=== PATIENT | male | born 1975 | race Caucasian/White ===

== ENCOUNTER → 2016-10-10 | Outpatient (CLI) | payer BC ==
--- NOTE | ~2016-10-10 | EKG ---
PATIENT: KATHERIN DUNHAM UNIT #: [id number] Ventricular Rate: 80 BPM Atrial Rate: 80 BPM P-R Interval: 152 ms QRS Duration: 96 ms Q-T Interval: 362 ms QTC Calculation(Bezet): 417 ms P [place]: 20 degrees Calculated R [place]: 37 degrees Calculated T [place]: 59 degrees Diagnosis Line: Normal sinus rhythm Diagnosis Line: Normal ECG Diagnosis Line: No previous ECGs available Diagnosis Line: Confirmed by GILL MORAES MD ([id number]) on Diagnosis Line: 10/11/2016 2:22:08 PM INTERPRETING MD: DIMITRY ACEVEDO
--- NOTE | ~2016-10-10 | CR63 ---
[facility] A Service of [facility] & [facility] RADIOLOGY TEXT RESULTS PATIENT: KATHERIN DUNHAM [place] [facility] [place] [birth year] UNIT #: [id number] AGE: [address]: Jarod Oliva MD SEX: M ORDER DR: [id number] [facility] [address] [place], [place] [address] [id number] O MR#: [id number] #: [id number] NAME: KATHERIN DUNHAM : 1975 SEX: M STUDY DATE/TIME: 10/10/2016 10:26 [place]IT: [facility] [place]OM: STUDY DESCRIPTION: CR Chest 2 View Attending Physician: Jarod Oliva M.D. Referring Physician: Jarod Oliva M.D. Ordering Physician: Jarod Oliva M.D. Primary Care Physician: Nayeli Zapien M.D. MEDICAL IMAGING REPORT This report is preliminary unless electronic signature is present EXAM PA and lateral chest radiograph 10/10. COMPARISON 09/01/14. HISTORY Hypertension, preop left knee surgery, shortness of breath with activity. FINDINGS PA and lateral views of the chest are obtained. The cardiovascular configuration is normal and the lungs are clear. CONCLUSION Normal chest Dictated by... Owen Burks M.D. THIS IS AN ELECTRONICALLY VERIFIED REPORT Owen Burks M.D. at 10/10/2016 5:08 PM Alejo TD: 10/10/2016 14:10 JOB #: [id number] MEDICAL IMAGING REPORT Page 1 of 1 COPY
[2016-10-10 11:12] LABS: URINE APPEARANCE CLEAR; URINE BILIRUBIN NEG (NEG); URINE BLOOD TRACE (NEG); URINE COLOR YELLOW; URINE GLUCOSE NEG (NEG); URINE KETONE NEG (NEG); URINE LEUKOCYTE ESTERASE NEG (NEG); URINE NITRATE NEG (NEG); URINE PROTEIN NEG (NEG); URINE SPECIFIC GRAVITY 1.011 (1.003-1.035); URINE UROBILINOGEN 0.2 MG/DL (NEG)
[2016-10-10 11:13] LABS: HEMATOCRIT 47.4 % (38.0-50.0); MEAN CELL VOLUME 89.1 FL (83-96); MEAN CORPUSCULAR HEMOGLOBIN 28.3 PG (28-34); MEAN CORPUSCULAR HGB CONC 31.8 g/dL (30-36); MEAN PLATELET VOLUME 8.5 FL (6.5-11.5); RED BLOOD COUNT 5.32 X10e (3.90-5.60); WHITE BLOOD COUNT 10.8 X10e3 (4.0-10.5)
[2016-10-10 11:15] LABS: CULTURE INDICATED? NO; U HYALINE CASTS AUWI 0-2 /[LPF]; URBCS1 AUWI 0-2 /[HPF] (0-2); URINE BACTERIA AUWI NEG (NEGATIVE); URINE SQUAMOUS EPITHELIAL CELL NONE SEEN /[HPF]; UWBCS1 AUWI 0-2 (0-5)
[2016-10-10 11:45] LABS: BLOOD UREA NITROGEN 11 mg/dL (9-23); BUN/CREATININE RATIO 12.22; CALCIUM SERUM 9.9 mg/dL (8.4-10.2); CARBON DIOXIDE 29 mmol/L (22-31); CHLORIDE 104 mmol/L (100-111); CREATININE SERUM 0.9 mg/dL (0.6-1.4); GLOM FILT RATE Estimated ABOVE60 mL/min (>60); GLUCOSE FASTING 84 mg/dL (70-110); POTASSIUM 4.5 mmol/L (3.5-5.1); SODIUM 139 mmol/L (135-145)
== END | disposition home or self-care (01) ==
LOC: CEKG 09:49
PROVIDERS: Orthopaedic Surgery
DX: Z01.818 Encounter for other preprocedural examination (principal); S83.242A Other tear of medial meniscus, current injury, left knee, initial encounter; I10 Essential (primary) hypertension
CPT/HCPCS: 36415; 71020; 80048; 81003; 85027; 93005